=== PATIENT | female | born 1965 | race Caucasian/White ===

== ENCOUNTER → 2016-05-13 | Outpatient (CLI) | payer BC ==
[~2016-05-13] MED LIST: ASPI81TA28 PO; BCPILLS PO; BUPRTAB51 PO; CHOL1000 PO; HYDR-5688 PO; OMEG10007 PO; VITA1TAB22
--- NOTE | 2016-05-14 14:24 | MAMMOGRAPHY REPORT ---
BILATERAL DIGITAL SCREENING MAMMOGRAM TOMOSYNTHESIS WITH CAD: 05/13/2016 CLINICAL HISTORY: Routine screening. Patient has no complaints. TECHNIQUE: Breast tomosynthesis in addition to standard 2D mammography was performed. Current study was also evaluated with a Computer Aided Detection (CAD) system. COMPARISON: Comparison is made to exam dated: 05/10/2015 mammogram - [facility]. BREAST COMPOSITION: The tissue of both breasts is heterogeneously dense, which may obscure small ma sses. FINDINGS: The parenchymal pattern is unchanged. No developing mass, architectural distortion or clus ter of suspicious microcalcifications is seen in either breast. IMPRESSION: ACR BI-RADS CATEGORY 2: BENIGN There is no mammographic evidence of malignancy. A 1 year screening mammogram is recommended. The p atient will receive written notification of the results. Approximately 10% of breast cancers are not detected with mammography. A negative mammographic repor t should not delay biopsy if a clinically suggestive mass is present. Pallavi Berger M.D. ay/:05/13/2016 21:17:46 Leather Grainer: Flor Haynes RT(R)(Christiano)(BD), [facility] letter sent: Normal 1/2 BI-RADS Code: ACR BI-RADS Category 2: Benign
== END | disposition home or self-care (01) ==
LOC: C.MAMM 15:58
PROVIDERS: ATTEND Family Medicine
DX: Z12.31 Encounter for screening mammogram for malignant neoplasm of breast (principal)

== ENCOUNTER → 2017-05-14 | Outpatient (CLI) | payer OTHER ==
[~2017-05-14] MED LIST changes: -HYDR-5688 PO
--- NOTE | 2017-05-15 13:57 | MAMMOGRAPHY REPORT ---
BILATERAL DIGITAL SCREENING MAMMOGRAM TOMOSYNTHESIS WITH CAD: 05/14/2017 TECHNIQUE: Breast tomosynthesis in addition to standard 2D mammography was performed. Current study was also evaluated with a Computer Aided Detection (CAD) system. COMPARISON: Comparison is made to exams dated: 05/13/2016 mammogram and 05/10/2015 mammogram - [facility]. Also prior outside mammograms dated 05/17/2013, 09/16/2012, 03/26/2011, 010. BREAST COMPOSITION: The tissue of both breasts is heterogeneously dense, which may obscure small mas ses. FINDINGS: No suspicious masses, calcifications, or areas of architectural distortion are noted in ei ther breast. There has been no significant interval change compared to prior exams. IMPRESSION: ACR BI-RADS CATEGORY 1: NEGATIVE There is no mammographic evidence of malignancy. A 1 year screening mammogram is recommended. The pa tient will receive written notification of the results. Approximately 10% of breast cancers are not detected with mammography. A negative mammographic report should not delay biopsy if a clinically suggestive mass is present. Pricilla Mantilla M.D. /:05/14/2017 16:37:30 Registered Respiratory Technician: Galina Garcia, [facility] letter sent: Normal 1/2 BI-RADS Code: ACR BI-RADS Category 1: Negative
== END | disposition home or self-care (01) ==
LOC: C.MAMM 16:21
PROVIDERS: ATTEND Family Medicine
DX: Z12.31 Encounter for screening mammogram for malignant neoplasm of breast (principal)

== ENCOUNTER 2022-05-15 05:43 | Inpatient (IN) ==
--- NOTE | 2022-05-13 15:26 | History and Physical Report ---
CHIEF COMPLAINT: Postmenopausal bleeding. D and C, suspicious for stromal sarcoma. HISTORY OF PRESENT ILLNESS: The patient is a 56-year-old 5, para 4, one spontaneous AB. [facility] health is complicated by anxiety and depression. She is on Wellbutrin 300 mg extended release. She is also on Klonopin 0.5 mg a day, baby aspirin and fish oil tablets. She experienced postmenopa usal bleeding, and recently underwent D and C. The D and C was suspicious for stromal sarcoma and pr esently she has been scheduled for total abdominal hysterectomy, bilateral salpingo-oophorectomy. She has 4 children in good health. ALLERGIES: No known drug allergies. PAST SURGICAL HISTORY: She has had D and C and appendectomy. MEDICAL HISTORY: She has anxiety and depression. SOCIAL HISTORY: No smoking, no excessive alcohol intake. Works for [employer]. FAMILY HISTORY: Mom at age 89 of congestive heart failure. Father at 90 of complications of Parkinson's. Two sisters, one sister pancreatic cancer at age 60, one sister had endometrial canc er. REVIEW OF SYSTEMS: HEAD: No symptoms of frequent or severe headaches. EYES: No symptoms of blurred vision or double vision. EARS: No symptoms of frequent ear infections or difficulty hearing. NOSE: No symptoms of frequent nosebleeds or difficulty breathing through her nose. PHYSICAL EXAMINATION GENERAL: Well-developed, well-nourished 56-year-old female, alert, oriented x3, cooperative, in no a cute distress, appeared her stated age. EYES: Conjunctivae pink. Sclerae white, no evidence of jaundice. ENT: Ears had normal light reflex bilaterally. Nose had normal mucosa. Septum is midline. There w ere no polyps. Throat had no erythema or evidence of infection. Teeth are in good state of repair. HEAD: Normocephalic, normal distribution of hair. NECK: Supple. Trachea midline. Thyroid is not enlarged. There is no adenopathy appreciated. Both carotids are of good intensity. CHEST: Clear to auscultation and percussion. No wheezes, rales or rhonchi appreciated. HEART: Had regular rhythm. S1 and S2 are normal. BREASTS: Exam was normal. ABDOMEN: Soft and nontender. PELVIC: Revealed normal-appearing cervix. Uterus was top normal size, anteverted. There were no ad nexal masses appreciated. MUSCULOSKELETAL: Revealed no calf tenderness. IMPRESSION OF THIS CASE: Anxiety, depression, postmenopausal bleeding, D and C results suspicious fo r stromal sarcoma. Job ID: [id number]
--- NOTE | 2022-05-14 08:44 | Anesthesiology Consultation ---
Date of Service May 14, 2022 Assessment & Plan (1) Encounter for pre-operative examination: - check urine test STAT am DOS. - s/p D&C 04/10/22: LMA#4. - COVID screening: Per rn assessment on 05/13/2022: Positive home test 04/17, negative PCR 05/13/22. Acceptable to proceed. Chart Review Chart Review: Acceptable Risk for Surgery and Patient NOT seen in Pre Admission Testing History Surgery Operation Date: 05/15/22 07:45 Proposed Procedures p Total Abdominal Hysterectomy, Bilateral Salpingectomy Oophorectomy - Galdino Jerez MD Operation Date: 05/15/22 07:45 Proposed Procedures p Total Abdominal Hysterectomy, Bilateral Salping-Oophorectomy - Galdino Jerez MD Height/Weight Height: 5 ft 5.5 in Weight: 58.967 kg Allergies Allergy/AdvReac Type Severity Reaction Status Date / Time gluten Allergy CELIAC Verified 05/15/22 06:08 DISEASE Medications Home Medications Medication Instructions Recorded Confirmed Last Taken aspirin 81 mg tablet,delayed 81 mg PO QAM 04/03/22 05/15/22 05/12/22 release bupropion HCl 300 mg 24 hr tablet, 300 mg PO QAM 04/03/22 05/15/22 05/15/22 05:00 extended release (Wellbutrin XL) clonazepam 0.5 mg tablet (Klonopin) 0.5 mg PO HS SLEEPING 04/03/22 05/15/22 05/14/22 22:00 lactobacillus combination no.4 3 3,000 mmu cells PO QAM 04/03/22 05/15/22 05/12/22 billion cell capsule (Probiotic) omega-3 fatty acids 1,000 mg PO QAM 04/03/22 05/15/22 05/12/22 vitamins A,C,A-blme-afydjd 14,320 1 cap PO QAM 04/03/22 05/15/22 05/12/22 unit-226 mg-200 unit capsule (PreserVision AREDS) cholecalciferol (vitamin D3) 50 50 mcg PO BID 05/13/22 05/15/22 05/12/22 mcg (2,000 unit) capsule (Vitamin D3) Active Medications Generic Name Dose Route Start Last Admin Trade Name Freq PRN Reason Stop Dose Admin Lactated Ringer's 1,000 mls @ 15 mls/hr 05/15/22 06:00 05/15/22 06:50 Lr IV 05/16/22 05:59 15 mls/hr .Q24H PARTH Administration Scopolamine 1 mg 05/15/22 07:03 05/15/22 07:05 Scopolamine 1 Mg Tdsy TD 05/15/22 07:04 1 mg ONE ONE Administration Past Medical History Medical History Celiac disease Chronic depression & ANXIETY Heart palpitations History of colon polyps History of COVID-19 04/23/22>RESOLVED Leukopenia SLIGHTLY LOW WBC WITH MOST RECENT BLOOD WORK Past Family History Family History Sister Family history of diabetes mellitus Sister Family history of diabetes mellitus Past Surgical History Surgical History Family history of reaction to anesthesia SISTERS - MAY HAVE HAD SOME ISSUES/PT DOESN'T REMEMBER DETAILS History of appendectomy History of colonoscopy History of D&C D/T MISCARRIAGE Nausea and vomiting after administration of anesthetic agent [place] teeth removed Social History Smoking Status: Never smoker Hx Alcohol Use: No Alcohol type: wine alcohol intake frequency: 0-2 drinks per day Alcohol Intake Frequency Comment: NONE SINCE 04/27/22 substance use type: does not use Physical Exam Vital Signs Last Vital Signs Temp 97.7 F 05/15/22 06:10 Pulse 68 05/15/22 06:10 Resp 20 05/15/22 06:10 BP 111/63 05/15/22 06:10 Pulse Ox 96 05/15/22 06:10 O2 Del Method 05/15/22 06:10 Lab Results Anesthesia Preop Results Results Anesthesia Widget: WBC 4.59 K/ul (4.8-10.8) L 04/02/22 Hgb 13.3 g/dl (12.0-16.0) 04/02/22 Hct 38.7 % (34.1-44.9) 04/02/22 Plt 203 K/uL (130-400) 04/02/22 Na 140 mmol/L (136-145) 05/13/22 K 3.4 mmol/L (3.5-5.1) L 05/13/22 Cl 106 mmol/L (98-107) 05/13/22 CO2 31 mmol/L (21-32) 05/13/22 BUN 11 mg/dl (6-23) 05/13/22 Creat 0.78 mg/dl (0.6-1.2) 05/13/22 Glucose Level 87 mg/dl (70-99(Fasting)) 05/13/22 PT 10.9 Seconds (9.0-12.0) 05/13/22 PTT 27.1 Seconds (21.0-31.0) 05/13/22 INR 1.0 (0.9-1.1) 05/13/22 SARS-CoV-2, RNA, NAAT NEGATIVE (NEGATIVE) 05/15/22 Blood Type B Positive 05/13/22 Antibody Screen NEGATIVE 05/13/22 Testing Laboratory Results Blood Type B Positive 05/13/22 15:07 Antibody Screen NEGATIVE 05/13/22 15:07 Electrocardiogram Date: 04/03/22 NSR, rate 76 bpm Septal infarct, age undetermined
[2022-05-15] MEDS ORDERED: cefOXitin 2,000 MG in DEXTROSE 5% 50 ML IV SCH (06:00)
[2022-05-15] MEDS ORDERED: LR 15ML/HR IV SCH (06:00)
--- NOTE | 2022-05-15 06:52 | History & Physical Bridge Note ---
Date of Service May 15, 2022 History & Physical Bridge Note I have examined the patient, reviewed the History & Physical and in the interval since the performance of the History & Physical I have noted the following changes of clinical significance: no changes noted
[2022-05-15] MEDS ORDERED: PROPOFOL IV EMULSION 10 MG/ML 20 ML VIAL IV ONE (06:57)
[2022-05-15] MEDS ORDERED: LIDOCAINE 2% MPF LOCAL 5 ML VIAL INFIL ONE (06:57)
[2022-05-15] MEDS ORDERED: ROPIVACAINE 0.5% 5 MG/ML 30 ML VIAL ONE ×3 (06:57)
[2022-05-15] MEDS ORDERED: fentaNYL citrate 100 MCG/2 ML VIAL ONE (06:57)
[2022-05-15] MEDS ORDERED: MIDAZOLAM HCL 1 MG/ML 2ML VIAL ONE (06:57)
[2022-05-15] MEDS ORDERED: ROCURONIUM BROMIDE 10 MG/ML 5 ML VIAL IV ONE (06:57)
[2022-05-15] MEDS ORDERED: SCOPOLAMINE 1 MG TDSY TD ONE ×2 (07:03→07:04)
[2022-05-15] MEDS ORDERED: MoRPHine SULFATE PF 1 MG/ML 10 ML AMP/VIAL ONE (07:06)
[2022-05-15] MEDS ORDERED: PROMETHAZINE HCL 6.25 MG in SODIUM CHLORIDE 0.9% 50 ML IV PRN (07:10)
[2022-05-15] MEDS ORDERED: diphenhydrAMINE 50 MG/ML VIAL IV PRN ×2 (07:10→11:41)
[2022-05-15] MEDS ORDERED: NALOXONE HCL 0.4 MG/1 ML VIAL/CARP IV PRN ×2 (07:10→11:41)
[2022-05-15] MEDS ORDERED: NALBUPHINE HCL INJ 10 MG/ML AMP IV PRN ×2 (07:10→11:41)
[2022-05-15] MEDS ORDERED: NALOXONE HCL 1 MG in SODIUM CHLORIDE 0.9% 1000ML 1,000 ML IV PRN ×2 (07:10→11:41)
[2022-05-15] MEDS ORDERED: ATROPINE SULFATE 0.1 MG/ML 10ML SYR IV PRN (07:10)
[2022-05-15] MEDS ORDERED: ONDANSETRON INJ 2 MG/ML 2 ML VIAL IV PRN ×2 (07:10→11:41)
[2022-05-15] MEDS ORDERED: MoRPHine SULFATE PF 1 MG/ML 10 ML AMP/VIAL INT SPINAL ONE (07:10)
[2022-05-15] MEDS ORDERED: NALOXONE HCL 0.08 MG in SYRINGE 1.8 ML IV PRN ×2 (07:10→11:41)
[2022-05-15] MEDS ORDERED: LACTATED RINGER'S 500 ML IV PRN ×2 (07:10→11:41)
[2022-05-15] MEDS ORDERED: ePHEDrine sulfate 50 MG/ML AMP IV PRN ×3 (07:10→11:41)
[2022-05-15] MEDS ORDERED: NO NARCOTICS OR SEDATIVES SCH (07:15)
[2022-05-15] MEDS ORDERED: SODIUM CHLORIDE 0.9% 1000ML 1,000 ML IV SCH ×2 (07:15→11:45)
[2022-05-15] MEDS ORDERED: DC INTRASPINAL MORPHINE SCH (07:15)
[2022-05-15] MEDS ORDERED: ONDANSETRON INJ 2 MG/ML 2 ML VIAL ONE ×2 (09:33→09:38)
[2022-05-15] MEDS ORDERED: DEXAMETHASONE SOD INJ 4 MG/ML VIAL ONE (09:33)
[2022-05-15] MEDS ORDERED: GLYCOPYRROLATE 0.2 MG/ML VIAL ONE (09:33)
[2022-05-15] MEDS ORDERED: NEOSTIGMINE METHYLSULFATE 1 MG/ML 10ML VIAL ONE (09:33)
--- NOTE | 2022-05-15 10:07 | Post Operative Brief Note ---
Immediate Post Op Note v1 Date of Surgery May 15, 2022 Pre & Post Diagnosis Operation Date: 05/15/22 07:45 <No data on this case meets the specified criteria> Operation Date: 05/15/22 07:45 Pre-Op Diagnosis: Uterine Neoplasm, Post Menopausal Bleeding Post-Op Diagnosis: Uterine Neoplasm, Post Menopausal Bleeding I identified the patient and participated in the time-out.: Yes Procedure Operation Date: 05/15/22 07:45 <No data on this case meets the specified criteria> Operation Date: 05/15/22 07:45 Actual Procedures p Total Abdominal Hysterectomy, Bilateral Salping-Oophorectomy(Not Applicable) - Galdino Jerez MD Surgeon Galdino Jerez MD Family Nurse Practitioner none Estimated Blood Loss 100 Findings Consistent with Post-Op Diagnosis normal tubes and ovaries Drains Riggs Catheter and Timur Drain Complications none
[2022-05-15] MEDS: fentaNYL citrate 100 MCG/2 ML VIAL IV PRN ×4 (10:23→11:00)
--- NOTE | 2022-05-15 10:41 | XRay Report ---
KUB HISTORY: Status post hysterectomy. Assess for foreign bodies. Extra instruments on final count COMPARISON: None. FINDINGS: The bowel gas pattern is unremarkable. There are no dilated loops of small bowel to suggest an obstruction. No renal calculi. No ureteral calculi. Lower abdominal skin ander, surgical drain , and a safety pin are noted within the pelvis. No additional radiopaque foreign bodies identified wi thin the abdomen or pelvis. Of note, the most inferior aspect of the pelvis is not entirely included on this study. IMPRESSION: Lower abdominal skin ander, surgical drain, and a safety pin are noted within the pelvis. No additi onal radiopaque foreign bodies identified within the abdomen or pelvis. ACT 112: Negative or not required by law. Electronically signed by: Josiah Diallo M.D. 05/15/2022 10:39 AM
[2022-05-15] MEDS ORDERED: PROMETHAZINE HCL INJ 25 MG/ML 1 ML VIAL ONE (10:45)
[2022-05-15] MEDS ORDERED: SODIUM CHLORIDE 0.9% 50 ML BAG ONE (10:45)
[2022-05-15] MEDS ORDERED: HYDROmorphone INJ 0.5 MG/0.5 ML SYR IV PRN (11:41)
--- NOTE | 2022-05-15 11:44 | Anesthesiology Progress Note ---
Date of Service May 15, 2022 Anesthesia Post Procedure Vital Signs Vital Signs: Temp Pulse Resp BP Pulse Ox O2 Del Method O2 Flow Rate 05/15/22 11:30 97.2 F L 73 15 99/62 L 100 Room Air 05/15/22 11:20 63 12 106/62 100 Room Air 05/15/22 11:10 56 L 12 105/63 100 Room Air 05/15/22 11:00 57 L 12 100/63 100 Room Air 05/15/22 10:50 58 L 16 100/53 L 100 Room Air 05/15/22 10:40 64 12 97/61 L 100 Room Air 05/15/22 10:30 65 17 112/53 L 98 Room Air 05/15/22 10:20 61 19 101/53 L 100 Oxymask 10 05/15/22 10:10 97.2 F L 58 L 15 102/58 L 100 Oxymask 10 05/15/22 06:10 97.7 F 68 20 111/63 96 Room Air Pain Intensity Lower Abdomen: Pain Intensity: 4 Transfer of Care Handoff Completed per policy Notes Mental Status: alert / awake / arousable and participated in evaluation Patient Amnestic to Procedure: Yes Nausea / Vomiting: adequately controlled Pain: adequately controlled and improving with treatment Airway Patency, RR, SpO2: stable & adequate BP & HR: stable & adequate Hydration State: stable & adequate Neuraxial Anesthesia: was administered and sensory block is resolving Anesthetic Complications: no major complications apparent and Pt Satisfied with anesthetic care
[2022-05-15] MEDS ORDERED: KETOROLAC 30 MG/ML VIAL ONE (11:45)
[2022-05-15] MEDS: KETOROLAC 30 MG/ML VIAL IV PRN ×2 (11:46→17:40)
[2022-05-15] MEDS ORDERED: MEPERIDINE HCL 50 MG/ML CARP IV PRN (11:53)
[2022-05-15] MEDS ORDERED: bisacodyL 10 MG SUPP PR PRN (11:53)
[2022-05-15] MEDS ORDERED: MAGNESIUM HYDROXIDE SUSP 30 ML UDC PO PRN (11:53)
[2022-05-15] MEDS ORDERED: ACETAMINOPHEN 1000 MG/100 ML IV IV ONE (12:06)
[2022-05-15] MEDS: ACETAMINOPHEN 1,000 MG/100 ML VIAL IV PRN (12:10)
--- NOTE | 2022-05-15 12:30 | Operative Report (OR) ---
DATE OF PROCEDURE: 05/15/2022. PROCEDURE: Total abdominal hysterectomy, bilateral salpingo-oophorectomy. INDICATIONS FOR SURGERY: Postmenopausal bleeding. 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 Normal tubes and ovaries. SURGEON: Diego Jerez MD. ESTIMATED BLOOD LOSS: 100 mL. ANESTHESIA: General with spinal narcotics. OPERATIVE FINDINGS AND PROCEDURE: The patient was brought to the OR table, correctly identified by a rmband and conversation. Riggs catheter was inserted aseptically in the bladder, connected to gravit y drainage. A vaginal prep was done with Betadine, ensuring that the upper part of the vagina was we ll covered with Betadine. Following this, the patient was positioned on the OR table. Lower abdomen was painted with sterilizing solution and then draped in the usual sterile fashion. The patient was identified. Pfannenstiel incision was made, carried down to the anterior fascia by sharp dissection . Hemostasis was secured by electrocauterization. Fascia was incised transversely the un derlying muscle by blunt and sharp dissection. Recti muscles were in the midline, exposing the peritoneum, which was carefully raised and entered. An O'Curtis-O'Sotomayor self-retraining retr actor was inserted into the incision and several towels were used to elevate the retractor and then a bout 8 sponges were used to pack the intestines out of the pelvic cavity. Once exposure of the pelvi c cavity was achieved, we proceeded to ligate the round ligaments on either side by using transfixion suture of pop-offs chromic and then proximal to this, a silk suture was placed with a passer. Then, the round ligaments were grasped next to the fundus with a Elaine and then cut free. Incision was ma de above the vesicouterine fold. The bladder was advanced out of the operative field. We had identi fied the blood supply to both ovaries through a peritoneal window and then doubly ligated the blood s upply on both the right and left side using a transfixion suture chromic gut and then proximal to reece t, we used a silk suture on a passer. We then cut the adnexa free from the lateral pelvic wall. Ske letonized the uterine vessels on either side, clamped with a curved Isael, cut with a stump and then doubly ligated with a transfixion suture chromic catgut and also cauterized the stumps. Following t his, we continued to advance the bladder out of the operative field. We slid off the cervix on eithe r side with a curved Isael clamping the cardinal ligaments, cutting with a stump and then ligating w ith a chromic gut suture. This was done in 2 steps because of the length of the cardinal ligament. Then, we excised the specimen by using electrocautery and knife and making an incision above the cerv ix proximal to the uterus shelling out the cervix and then entering the vagina and excising the speci men consisting of both tubes and ovaries and uterus and cervix. I then sutured the angles of the vag inal cuff with a chromic gut suture on either side to the stumps of the cardinal ligaments. I then c lamped the vaginal cuff proximally and posteriorly on either side with a cuff clamp and then used a f kxilt-iu-vzdxb suture to approximate the vaginal mucosa front to back and anchored it in the cardinal ligaments on both the right and left side. The midportion was whipstitched open with a continuous i nterlocking suture of chromic. At this time, hemostasis was good. I brought the round ligaments derek n to the cardinal ligaments and tied them in for support. I then reperitonealized from the right bobby e to the middle and then from the left side to the middle and then tied the two sutures together afte r placing a [place] drain with a safety pin into the vaginal cuff and into the cul-de-sac. We washed the cul-de-sac clean. There was no bleeding. Estimated blood loss was 100 mL. We removed the retra ctors and the sponges. We had some difficulty with the sponge count. It was hard to locate one of t he sponges. I had to search several times, then changed to the patient's right side and found the sp onge and the left pelvic fossa. Sponge count was now normal. We proceeded then to close the periton eum with a continuous chromic gut suture, recti muscles with interrupted ooftzm-sf-irjxe suture chrom ic catgut, fascia with continuous interlocking suture of Vicryl on each side tied in the midline. Coe bcutaneous was approximated with a continuous plain and the skin edges were approximated with staple clips. Job ID: [id number]
[2022-05-15] MEDS ORDERED: CHECK SCOPOLAMINE PATCH PLACEMENT SCH (16:00)
[2022-05-16] MEDS: KETOROLAC 30 MG/ML VIAL IV PRN (03:36)
[2022-05-16] MEDS ORDERED: ONDANSETRON INJ 2 MG/ML 2 ML VIAL IV PRN (05:42)
[2022-05-16] MEDS ORDERED: KETOROLAC 30 MG/ML VIAL IV PRN (05:42)
[2022-05-16] MEDS ORDERED: PROMETHAZINE HCL 25 MG in SODIUM CHLORIDE 0.9% 50 ML IV PRN (05:42)
[2022-05-16 06:42] LABS: Hemoglobin 10.1 g/dl (12.0-16.0)
[2022-05-16] MEDS: ACETAMINOPHEN 1,000 MG/100 ML VIAL IV PRN (07:43)
[2022-05-16] MEDS: ADVANCED PROBIOTIC 1250 MG CAPSULE PO SCH (07:43)
[2022-05-16] MEDS: buPROPion XL 300 MG TABCR PO SCH (07:43)
--- NOTE | 2022-05-16 09:26 | Obstetrical Progress Note ---
Date of Service May 16, 2022 Assessment & Plan Admission and Anticipated Discharge Date Admission Date: May 15, 2022 Subjective abdomen soft and non tender bowel sounds present bandage removed incision is clean and dry no calf tenderness vaginal bleeding scant hgb 10.1 Results & Data ([facility]) Vital Signs (Past 12 Hours) Vital Signs Temp Pulse Resp BP BP Pulse Ox O2 Del Method 05/16/22 03:00 18 99 05/16/22 03:16 36.7 C 72 18 103/53 L 99 Room Air 05/16/22 02:00 18 100 05/16/22 01:00 18 99 05/15/22 23:00 18 98 05/16/22 00:00 18 99 05/15/22 22:45 20 99 05/15/22 22:49 37.1 C 71 16 103/54 L 99 Room Air
[2022-05-16 10:18] LABS: BUN Creatinine Ratio 15.5 (10-20); Calcium 7.9 mg/dl (8.5-10.1); Creatinine Clr Calc Pharmacy 98.2 ml/min; Est GFR (African American) 118.6 ml/min; Est GFR (Non-African American) 102.3 ml/min; Potassium 3.7 mmol/L (3.5-5.1)
[2022-05-16] MEDS: ASPIRIN 81 MG ECTAB PO SCH (12:49)
[2022-05-16] MEDS: oxyCODONE/ACETAMINOPHEN 5mg/325mg TAB PO PRN ×2 (17:18→22:56)
[2022-05-16] MEDS: IBUPROFEN 600 MG TAB PO PRN ×2 (17:18→22:56)
[2022-05-16] MEDS ORDERED: SIMETHICONE 80 MG CHEW PO PRN (20:52)
[2022-05-17] MEDS: IBUPROFEN 600 MG TAB PO PRN ×3 (03:55→19:50)
[2022-05-17] MEDS: oxyCODONE/ACETAMINOPHEN 5mg/325mg TAB PO PRN ×4 (04:25→19:50)
[2022-05-17] MEDS ORDERED: ONDANSETRON 4 MG OD TAB ONE (06:12)
[2022-05-17 09:08] LABS: Calcium 8.3 mg/dl (8.5-10.1); Potassium 3.7 mmol/L (3.5-5.1)
[2022-05-17] MEDS: buPROPion XL 300 MG TABCR PO SCH (09:08)
[2022-05-17] MEDS: ASPIRIN 81 MG ECTAB PO SCH (09:08)
[2022-05-17] MEDS: ADVANCED PROBIOTIC 1250 MG CAPSULE PO SCH (09:08)
[2022-05-17 09:13] LABS: BUN Creatinine Ratio 8.8 (10-20); Est GFR (African American) 119.3 ml/min; Est GFR (Non-African American) 102.9 ml/min
--- NOTE | 2022-05-17 10:44 | Obstetrical Progress Note ---
Date of Service May 17, 2022 Assessment & Plan Admission and Anticipated Discharge Date Admission Date: May 15, 2022 Subjective abdomen soft and non tender incision is clean and dry no calf tenderness ambulating well passing small amounts of gas patient is still moderately distended miguelangel drain with safety pin removed from the vagina vaginal bleeding scant hgb 10.1 Results & Data ([facility]) Vital Signs (Past 12 Hours) Vital Signs Temp Pulse Pulse Resp BP Pulse Ox O2 Del Method 05/17/22 08:50 37.0 C 66 16 95/57 L 97 Room Air 05/17/22 03:50 36.9 C 70 16 107/70 98 Room Air 05/16/22 23:00 36.8 C 72 18 124/78 98 Room Air
[2022-05-17] MEDS: SENNA 8.6 MG TAB PO PRN (16:40)
[2022-05-17] MEDS: CALCIUM CARBONATE 500 MG CHEWABLE TAB PO PRN ×2 (16:41→19:53)
[2022-05-18] MEDS: ONDANSETRON 4 MG OD TAB PO PRN ×2 (01:03→09:54)
[2022-05-18] MEDS: IBUPROFEN 600 MG TAB PO PRN ×2 (05:13→10:39)
[2022-05-18] MEDS: oxyCODONE/ACETAMINOPHEN 5mg/325mg TAB PO PRN ×2 (05:13→10:39)
[2022-05-18] MEDS: ASPIRIN 81 MG ECTAB PO SCH (08:14)
[2022-05-18] MEDS: SENNA 8.6 MG TAB PO PRN (08:14)
[2022-05-18] MEDS: ADVANCED PROBIOTIC 1250 MG CAPSULE PO SCH (08:14)
[2022-05-18] MEDS: buPROPion XL 300 MG TABCR PO SCH (08:15)
--- NOTE | 2022-05-18 10:07 | Obstetrical Progress Note ---
Date of Service May 18, 2022 Assessment & Plan Admission and Anticipated Discharge Date Admission Date: May 15, 2022 Subjective abdomen soft and non tender incision is clean and dry patient has had a bowel movement no calf tenderness ambulating wel Results & Data ([facility]) Vital Signs (Past 12 Hours) Vital Signs Temp Pulse Resp BP Pulse Ox O2 Del Method 05/18/22 08:02 36.9 C 66 16 99/58 L 97 Room Air 05/17/22 23:15 36.7 C 75 16 102/63 96 Room Air
--- NOTE | 2022-05-18 10:20 | Discharge Summary (DS) ---
DATE OF ADMISSION: 05/15/2022 DATE OF DISCHARGE: She was admitted with a diagnosis of postmenopausal bleeding. She had had an evaluation with an outp atient D and C, prior to which she had an ultrasound, which showed a thickened endometrial lining. Th e D and C report was suspicious for stromal sarcoma. Because of this, we elected to do a total abdom inal hysterectomy. On the day of admission, she was taken to the OR where she underwent total abdomi nal hysterectomy, bilateral salpingo-oophorectomy with suspension of the vaginal cuff. Postoperative ly, she did have a little trouble with ileus. It took about 48 hours to resolve and at the time of d ischarge, she was ambulating well, eating well. She remained afebrile throughout her entire postoper ative course. Her postoperative hemoglobin was 10.1. At the time of discharge, she was doing well. Incision was clean and dry. She had a bowel movement and pain was controlled with a combination of Percocet and Motrin. She was given the usual prescriptions to take home along with Manoj villarrael to return to the office in one week for removal of ander. Job ID: [id number]
--- NOTE | 2022-05-23 09:33 | Coding Query ---
Your help is needed for correct coding of this account; please clarify if the patients Post-operative Ileus was: (x ) expected out of the surgery ( ) unexpected complication from the surgery ( )other please specify Thank you Marina JARA
--- NOTE | 2022-05-23 09:34 | Coding Query ---
PATHOLOGY To promote full compliance with coding requirements relating to patient care, physician participation is requested in all cases of inpatient coder uncertainty. Please assist us with the question(s) below: Please review the Pathology report and please document any relevant diagnosis(es) below: Diagnosis(es): post menopausal bleeding possible stromal sarcoma Thank you Marina JARA
== END 2022-05-18 11:15 | disposition home or self-care (01) | DRG 742 ==
LOC: ASU 05:43 → 4E1 10:19